=== PATIENT | female | born 1990 | race Caucasian/White ===

== ENCOUNTER 2019-04-08 12:29 | Inpatient (IN) | payer OTHER ==
[~2019-04-08] VITALS: Ht 154.9 cm; Wt 40.0 kg
[2019-04-08] MEDS ORDERED: morphine 4 MG/ML VIAL IV STA ×2 (12:54→19:53)
[2019-04-08] MEDS ORDERED: ONDANSETRON INJ 8 MG in DEXTROSE 5% 50 ML IV STA (12:54)
[2019-04-08] MEDS ORDERED: SOD CHLORIDE 0.9% 1,000 ML IV STA (12:54)
[2019-04-08] MEDS ORDERED: ACETAMINOPHEN 325 MG TAB PO PRN (13:30)
[2019-04-08] MEDS ORDERED: ONDANSETRON 4 MG INJ IV PRN ×2 (13:30→20:00)
[2019-04-08 18:15] VITALS: BP 117/72; PULSE 84; RESP 18
--- NOTE | 2019-04-08 18:16 | ERD ---
ER Documentation Chief Complaint Chief Complaint dizzy, lightheaded, pelvic mass on abd, no appetite for almost a month HPI Patient is a 28-year-old female with no medical problems who presents with abdominal pain. The patient says that she can eat and has been on a liquid diet for the past 2 months. She feels dizzy and lightheaded. She has had diffuse abdominal pain off and on with abdominal distention. She tried medical mar ijuana as well. She did have a bowel movement this morning. She has nausea but no vomiting. She had an MRI done on March 31 which showed a "ovarian cyst". Upon review of old medical records this is the patient's first visit to the emergency department. She does not currently have a primary doctor and she does not have a test development engineer. ROS All systems reviewed and are negative except as per history of present illness. Medications Home Meds No Active Prescriptions or Reported Meds Allergies Allergies: Coded Allergies: sulfamethoxazole (Verified Allergy, Unknown, 04/08/19) trimethoprim (Verified Allergy, Unknown, 04/08/19) PMhx/Soc History of Surgery: No Anesthesia Reaction: No Hx Neurological Disorder: No Hx Respiratory Disorders: No Hx Cardiac Disorders: No Hx Psychiatric Problems: No Hx Miscellaneous Medical Probl: Yes (Ovarian Cyst) Hx Alcohol Use: No Hx Substance Use: Yes (medical Marijuana) Hx Tobacco Use: No Smoking Status: Former smoker FmHx Family History: No diabetes Physical Exam Vitals Vital Signs Date Temp Pulse Resp B/P (MAP) Pulse Ox O2 O2 Flow FiO2 Time Delivery Rate 04/08/19 98.5 143 20 123/79 99 12:33 (94) Physical Exam Const: No acute distress Head: Atraumatic Eyes: Normal Conjunctiva ENT: Normal External Ears, Nose and Mouth. Neck: Full range of motion. No meningismus. Resp: Clear to auscultation bilaterally Cardio: Tachycardic rate without murmur Abd: Distended abdomen with palpable mass and diffuse tenderness to palpation Skin: No petechiae or rashes Back: No midline or flank tenderness Ext: No cyanosis, or edema Neur: Awake and alert Psych: Normal Mood and Affect Result Diagram: 04/08/19 1306 04/08/19 1306 Results 24 hrs Laboratory Tests Test 04/08/19 13:06 White Blood Count 4.0 10^3/ul Red Blood Count 4.63 10^6/ul Hemoglobin 13.6 g/dl Hematocrit 40.9 % Mean Corpuscular Volume 88.3 fl Mean Corpuscular Hemoglobin 29.4 pg Mean Corpuscular Hemoglobin Concent 33.3 g/dl Red Cell Distribution Width 12.1 % Platelet Count 233 10^3/UL Mean Platelet Volume 10.9 fl Immature Granulocytes % 0.500 % Neutrophils % 55.0 % Lymphocytes % 30.4 % Monocytes % 11.1 % Eosinophils % 1.0 % Basophils % 2.0 % Nucleated Red Blood Cells % 0.0 /100WBC Immature Granulocytes # 0.020 10^3/ul Neutrophils # 2.2 10^3/ul Lymphocytes # 1.2 10^3/ul Monocytes # 0.4 10^3/ul Eosinophils # 0.0 10^3/ul Basophils # 0.1 10^3/ul Nucleated Red Blood Cells # 0.0 10^3/ul Prothrombin Time 12.6 Sec Prothrombin Time Ratio 1.0 INR International Normalized Ratio 0.93 Activated Partial Thromboplast Time 26.6 Sec Urine Color YELLOW Urine Clarity CLOUDY Urine pH 7.0 Urine Specific [place] 1.025 Urine Ketones 1+ mg/dL Urine Nitrite NEGATIVE mg/dL Urine Bilirubin NEGATIVE mg/dL Urine Urobilinogen NEGATIVE mg/dL Urine Leukocyte Esterase TRACE Hortencia/ul Urine Microscopic RBC 4 /HPF Urine Microscopic WBC 3 /HPF Urine Squamous Epithelial Cells MODERATE /HPF Urine Mucus FEW /HPF Urine Hemoglobin NEGATIVE mg/dL Urine Glucose NEGATIVE mg/dL Urine Total Protein NEGATIVE mg/dl Sodium Level 144 mmol/L Potassium Level 3.5 mmol/L Chloride Level 105 mmol/L Carbon Dioxide Level 23 mmol/L Anion Gap 16 Blood Urea Nitrogen 15 mg/dl Creatinine 0.53 mg/dl Est Glomerular Filtrat Rate mL/min > 60 mL/min Glucose Level 102 mg/dl Calcium Level 10.0 mg/dl Total Bilirubin 0.5 mg/dl Direct Bilirubin 0.00 mg/dl Indirect Bilirubin 0.5 mg/dl Aspartate Amino Transf (AST/SGOT) 26 IU/L Alanine Aminotransferase (ALT/SGPT) 17 IU/L Alkaline Phosphatase 58 IU/L Troponin I < 0.012 ng/ml Total Protein 8.7 g/dl Albumin 5.1 g/dl Globulin 3.60 g/dl Albumin/Globulin Ratio 1.41 Lipase 127 U/L Current Medications Medications Dose Sig/Betsy Start Time Status Last (Trade) Ordered Route PRN Stop Time Admin Dose Reason Admin Sodium 1,000 ml @ Q1H STAT 04/08/19 DC 04/08/19 Chloride 1,000 mls/hr IV 12:54 04/08/19 13:11 13:53 Morphine 4 mg ONCE STAT 04/08/19 DC 04/08/19 Sulfate IV 12:54 04/08/19 13:11 (morphine) 12:56 Ondansetron 54 ml @ ONCE STAT 04/08/19 DC 04/08/19 HCl 8 200 mls/hr IV 12:54 04/08/19 13:21 mg/Dextrose 13:10 Procedures/MDM Ultrasound pelvis read by radiology. Chest x-ray read by radiology. EKG read by me: Rate/Rhythm: Regular rate and rhythm at a normal rate Intervals: Normal Impression: No evidence of ischemia or arrhythmia Patient is a 28-year-old female presents with abdominal and likely ovarian mass. It is possible that this is a cystadenoma but there is also possibility of ovarian cancer. I spoke with Dr. Bender who is the test development engineer on-call who take the patient to the operating room. The patient will be admitted to a medical surgical bed. I doubt bowel obstruction, appendicitis, or pancreatitis at this time. Departure Diagnosis: Primary Impression: Abdominal pain Abdominal location: generalized Qualified Codes: R10.84 - Generalized abdominal pain Additional Impression: Cystadenoma Condition: BLAS Elena MD April 08, 2019 18:16
[2019-04-08 18:47] VITALS: Ht 154.9 cm; Wt 40.0 kg
[2019-04-08] MEDS ORDERED: DEXTROSE 5%-LR 1,000 ML IV ONE (19:30)
[2019-04-08 20:00] VITALS: BP 104/52; PULSE 63; RESP 18
--- NOTE | 2019-04-08 22:10 | HP ---
Date/Time of Note Date/Time of Note DATE: 04/08/19 TIME: 22:00 Assessment/Plan VTE Prophylaxis SCD applied (from Nsg): No SCD contraindicated: low risk/ambulating Pharmacological prophylaxis: other (None) Pharm contraindication: low risk/ambulating Lines/Catheters IV Catheter Type (from Nrsg): Saline Lock Assessment/Plan Assessment/Plan 28 years old 0 with large adnexal mass. Labs, ultrasound, management discussed in detail with patient and her boyfriend. Both expressed understanding. All of their questions answered. She would like to be discharged home tomorrow and have follow-up at [facility]. Observe her closely. She will be seen by the upcoming laborist tomorrow Result Diagram: 04/08/19 1306 04/08/19 1306 Results 24hrs Laboratory Tests Test 04/08/19 13:06 04/08/19 14:31 White Blood Count 4.0 L Red Blood Count 4.63 Hemoglobin 13.6 Hematocrit 40.9 Mean Corpuscular Volume 88.3 Mean Corpuscular Hemoglobin 29.4 Mean Corpuscular Hemoglobin Concent 33.3 Red Cell Distribution Width 12.1 Platelet Count 233 Mean Platelet Volume 10.9 H Immature Granulocytes % 0.500 H Neutrophils % 55.0 Lymphocytes % 30.4 Monocytes % 11.1 H Eosinophils % 1.0 Basophils % 2.0 Nucleated Red Blood Cells % 0.0 Immature Granulocytes # 0.020 Neutrophils # 2.2 Lymphocytes # 1.2 Monocytes # 0.4 Eosinophils # 0.0 Basophils # 0.1 Nucleated Red Blood Cells # 0.0 Prothrombin Time 12.6 Prothrombin Time Ratio 1.0 INR International Normalized Ratio 0.93 Activated Partial Thromboplast Time 26.6 Urine Color YELLOW Urine Clarity CLOUDY A Urine pH 7.0 Urine Specific [place] 1.025 Urine Ketones 1+ H Urine Nitrite NEGATIVE Urine Bilirubin NEGATIVE Urine Urobilinogen NEGATIVE Urine Leukocyte Esterase TRACE A Urine Microscopic RBC 4 Urine Microscopic WBC 3 Urine Squamous Epithelial Cells MODERATE Urine Mucus FEW A Urine Hemoglobin NEGATIVE Urine Glucose NEGATIVE Urine Total Protein NEGATIVE Sodium Level 144 Potassium Level 3.5 Chloride Level 105 Carbon Dioxide Level 23 Anion Gap 16 H Blood Urea Nitrogen 15 Creatinine 0.53 Est Glomerular Filtrat Rate mL/min > 60 Glucose Level 102 Calcium Level 10.0 Total Bilirubin 0.5 Direct Bilirubin 0.00 Indirect Bilirubin 0.5 Aspartate Amino Transf (AST/SGOT) 26 Alanine Aminotransferase (ALT/SGPT) 17 Alkaline Phosphatase 58 Troponin I < 0.012 Total Protein 8.7 H Albumin 5.1 H Globulin 3.60 H Albumin/Globulin Ratio 1.41 Lipase 127 POC Beta HCG, Qualitative NEGATIVE HPI/ROS Admit Date/Time Admit Date/Time April 08, 2019 at 13:11 Hx of Present Illness 28 years old 0 presented to emergency department with complaining of abdominal pain, dizziness, and nausea. She states is not able to eat regular diet and only taking clear liquid. She states the size of her abdomen incr easing in the last 3 months. She has no rod puller or primary care physician. She was seen at [facility], and abdominal MRI ordered which revealed large ovarian cyst. Ultrasound performed at the emergency department: The uterus is normal in size with a normal appearance of the myometrium. The uterus measures 8.7 x 3.3 x 5.0 cm. The endometrial stripe is homogeneous in appearance and has the thickness of 7 mm. The ovaries are not visualized. There is a large cystic mass superior to the uterus measuring 18 x 10 x 17 cm. No free fluid is present within the pelvis. IMPRESSION: Large cystic mass in the abdomen and pelvis, superior to the uterus. Ovarian n eoplasm cannot be excluded. Surgical consultation is recommended. ROS Additional Comments All above system are negative except as noted in history of present illness PMH/Family/Social Past Medical History Blood pressure 100/62, pulse rate 60/minutes, respiratory rates 14/minutes, temperature 98.4 Medical History: no pertinent history Medications Current Medications Ondansetron HCl (Zofran Inj) 4 mg BRIDGE ORDER PRN IV NAUSEA/VOMITING Last administered on 04/08/19at 20:15; Admin Dose 4 MG; Start 04/08/19 at 13:30; Stop 04/09/19 at 13:29 Acetaminophen (Tylenol Tab) 650 mg ER BRIDGE PRN PO .MILD PAIN 1-3 OR TEMP; Start 04/08/19 at 13:30; Stop 04/09/19 at 13:29 Dextrose/Lactated Ringer's 1,000 ml @ 100 mls/hr Q10H ONCE IV Last administered on 04/08/19at 20:10; Admin Dose 100 MLS/HR; Start 04/08/19 at 19:30; Stop 04/09/19 at 05:29 Ondansetron HCl (Zofran Inj) 4 mg Q6H PRN IV NAUSEA AND/OR VOMITING; Start 04/08/19 at 20:00 Coded Allergies: sulfamethoxazole (Verified Allergy, Unknown, 04/08/19) trimethoprim (Verified Allergy, Unknown, 04/08/19) Past Surgical History Past Surgical Hx: no surgical history Family History Significant Family History: no pertinent family hx Social History Alcohol Use: none Smoking Status: Never smoker Drug Use: marijuana (In the last 2 years) Exam/Review of Systems Vital Signs Vitals Vital Signs Date Temp Pulse Resp B/P (MAP) Pulse Ox O2 O2 Flow FiO2 Time Delivery Rate 04/08/19 98.4 63 18 104/52 99 20:00 (69) 04/08/19 Room Air 18:15 Exam Constitutional: alert, oriented, well developed Psych: nl mood/affect Head: normocephalic Neck: supple, non-tender Respiratory: clear to auscultation, normal air movement Cardiovascular: regular rate and rhythm, nl pulses (Soft, there is a large central mass at the level of the umbilicus. Mild tenderness. No rebound) Extremities: other (No edema, varicose vein, thigh or calf tenderness bilaterally) Neurological: nl SHAHEED Damon April 08, 2019 22:10
[2019-04-09 02:00] VITALS: BP 95/53; PULSE 67; RESP 19
[2019-04-09 08:19] VITALS: BP 103/63; PULSE 61; RESP 15
--- NOTE | 2019-04-09 15:06 | PD.PPDC ---
[employer] SUPERVISOR Discharge Instruction Provider Information Physician Information Rehana Chou MD Condition [id number] Patient Condition: [id number] Good Activity/Restrictions [id number] Activity: Azacf2c Normal Activity [id number] Restrictions: [id number] No Exercising No Lifting No Driving Follow-up Follow-up with Physician: 3, 4, Day/Days Provider Information: Rehana Chou MD Return to clinic for [id number] [employer] CONTACT Instructions: [id number] Fever greater than 101 Chills Worsening abdominal pain Excessive Vaginal Bleeding More than 2 pads per hour Unable to tolerate diet REHANA CHOU MD April 09, 2019 15:06
--- NOTE | 2019-04-09 15:06 | PN ---
Date/Time of Note Date/Time of Note DATE: 04/09/19 TIME: 14:28 Assessment/Plan VTE Prophylaxis Risk score (from Nsg)>0 risk: 0 SCD applied (from Nsg): No SCD contraindicated: low risk/ambulating Pharmacological prophylaxis: NA/contraindicated Pharm contraindication: low risk/ambulating Lines/Catheters IV Catheter Type (from Nrsg): Saline Lock Assessment/Plan Hospital Course 1. HD#2 Pelvic pain. Pelvic mass. No evidence of torsion.Symptomatic. no evidence of ac chilkoot abdomen, Patient is stable for discharge. She understand importance of follow up immediately within 3-4 days after DC home with her CARE TECHNICIAN. Patient understands that possibility of malignancy can not been ruled out and understands that she needs to have a close follow-up immediately after discharge from the hospital. She desires to go to [facility]. Torsion precaution discussed with patient. All questions were answered to patient best satisfaction Result Diagram: 04/08/19 1306 04/08/19 1306 Results 24hrs Laboratory Tests Test 04/08/19 14:31 POC Beta HCG, Qualitative NEGATIVE Subjective 24 Hr Interval Summary Free Text/Dictation 04/09/2019 Denies any complaint. Denies any nausea or vomiting, Reports good apetite. Denies any fever or chills. Desires to go home. Patient desires to present to [facility]. Exam/Review of Systems Exam Vitals Vital Signs Date Temp Pulse Resp B/P (MAP) Pulse Ox O2 O2 Flow FiO2 Time Delivery Rate 04/09/19 98.2 61 15 103/63 100 08:19 (76) 04/08/19 Room Air 18:15 Intake and Output 04/08/19 04/08/19 04/09/19 1515:00 23:00 07:00 IntakeIntake Total 1000 ml BalanceBalance 1000 ml Constitutional: alert, oriented, well developed Psych: no complaints, nl mood/affect, anxiety Head: normocephalic, atraumatic Eyes: nl conjunctiva ENMT: nl external ears & nose, nl lips & teeth, nl nasal mucosa & septum Neck: supple, non-tender Respiratory: clear to auscultation, normal air movement Cardiovascular: regular rate and rhythm, nl pulses Gastrointestinal: soft, nl liver, spleen, tender (slight tenderness in the abdomen, noted. No rebound tenderness, no guarding, no rigidity. There is a midline pelvic mass palpable up to 2 cm above the umbilicus) Genitourinary - Female: other (Pelvic exam Deferrred.) Skin: nl turgor, rash or lesions Lymph: nl lymph nodes Results Results 24hrs Laboratory Tests Test 04/08/19 14:31 POC Beta HCG, Qualitative NEGATIVE Imaging Imaging PROCEDURE: US Pelvis. CLINICAL INDICATION: pelvic pain , ovarian cyst TECHNIQUE: Multiple sonographic images of the pelvis were obtained utilizing transabdominal technique. The images were reviewed on a PACS workstation. COMPARISON: None. FINDINGS: The uterus is normal in size with a normal appearance of the myometrium. The uterus measures 8.7 x 3.3 x 5.0 cm. The endometrial stripe is homogeneous in appearance and has the thickness of 7 mm. The ovaries are not visualized. There is a large cystic mass superior to the uterus measuring 18 x 10 x 17 cm. No free fluid is present within the pelvis. RPTAT: AA IMPRESSION: Large cystic mass in the abdomen and pelvis, superior to the uterus. Ovarian neoplasm cannot be excluded. Surgical consultation is recommended. Medications Medication Current Medications Ondansetron HCl (Zofran Inj) 4 mg Q6H PRN IV NAUSEA AND/OR VOMITING; Start 04/08/19 at 20:00 REHANA CHOU MD April 09, 2019 15:05
--- NOTE | 2019-04-09 15:08 | DS ---
Date/Time of Note Date/Time of Note DATE: 04/09/19 TIME: 15:07 Discharge Summary Admission/Discharge Info Admit Date/Time April 08, 2019 at 13:11 Discharge Date/Time 04/09/2019 Discharge Diagnosis 1. Abdominal pain 2. Large pelvic cystic mass Patient Condition: Good Procedures Observation Pain management Ultrasound of the pelvis Hospital Course 1. HD#2 Admitted due to pelvic pain. Noted to have a large pelvic mass. Ovarian neoplasm cannot be excluded. Patient admitted for pain control. Her abdomen was soft. There was no evidence of acute abdomen. There was no evidence of cyst rupture or torsion during observation. Due to concern for possibility of ovarian neoplasm cannot be ruled out recommended the patient to be seen as outpatient and to schedule the surgery with TATTOO DESIGNER oncology as outpatient. Patient desires to go to [facility] and get care there. On hospital day #1 patient was noted to be stable enough to be discharged home. She denies any pain. She had good appetite. She denies any nausea vomiting. She was advised to have a follow-up as soon as possible after discharge from the hospital within the next 2 to 3 days with her primary TATTOO DESIGNER at [facility]. She understands the possibility of malignancy cannot be ruled out. All questions were answered to patient with satisfaction. Torsion precaution discussed with patient. She agreed to comply with all instructions. Home Meds No Active Prescriptions or Reported Meds Primary Care Provider [facility] REHANA CHOU MD April 09, 2019 15:08
[2019-04-09 15:33] VITALS: BP 121/74; PULSE 70; RESP 16
== END 2019-04-09 16:30 | disposition home or self-care (01) | DRG 392 ==
LOC: E/R 12:29 → 2NE 13:11
PROVIDERS: ADMIT Obstetrics & Gynecology; ATTEND Obstetrics & Gynecology
DX: R10.9 Unspecified abdominal pain (principal); R19.00 Intra-abdominal and pelvic swelling, mass and lump, unspecified site
CPT/HCPCS: 71045; 76856; 80053; 81001; 81025; 83690; 84484; 85025; 85610; 85730; 93005; 96374; J2270; J2405; J7030; J7121

== ENCOUNTER 2019-04-19 16:56 | Emergency (ER) | payer OTHER ==
[~2019-04-19] VITALS: Wt 37.6 kg
[2019-04-19] MEDS ORDERED: morphine 4 MG/ML VIAL IV STA (18:25)
[2019-04-19] MEDS ORDERED: SOD CHLORIDE 0.9% 500 ML IV STA (18:25)
--- NOTE | 2019-04-19 20:03 | ERD ---
ER Documentation Chief Complaint Chief Complaint LOST WT, NOT EATING , AP, WEAKNESS HPI 28-year-old female recently diagnosed with a large ovarian cystic mass presenting with worsening abdominal pain, 25 pound weight loss over the past 3 months, decreased appetite, difficulty having bowel movements. She was admitted here a few weeks ago and was seen by gynecology. They felt that she needed gynecology oncology to do surgery on her which we do not have here. They referred her to [facility]. Patient went to the ER at [facility], where they did not admit her and stated that the surgery should have been done here at this hospital. Patient states that she has been getting the "run around" from her outpatient primary care clinic. She has not been able to see a psychological aide. No fevers or chills. No vomiting. ROS All systems reviewed and are negative except as per history of present illness. Medications Home Meds No Active Prescriptions or Reported Meds Allergies Allergies: Coded Allergies: sulfamethoxazole (Verified Allergy, Unknown, 04/19/19) trimethoprim (Verified Allergy, Unknown, 04/19/19) PMhx/Soc History of Surgery: No Anesthesia Reaction: No Hx Neurological Disorder: No Hx Respiratory Disorders: No Hx Cardiac Disorders: No Hx Psychiatric Problems: No Hx Miscellaneous Medical Probl: No (Ovarian cyst) Hx Alcohol Use: No Hx Substance Use: Yes (Marijuana) Hx Tobacco Use: No (Marijuna use) Smoking Status: Never smoker FmHx Mother from breast cancer Family History: No diabetes Physical Exam Vitals Vital Signs Date Temp Pulse Resp B/P (MAP) Pulse Ox O2 O2 Flow FiO2 Time Delivery Rate 04/19/19 88 16 94/72 (79) 99 Room Air 21:27 04/19/19 76 16 106/54 98 Room Air 19:09 (71) 04/19/19 98.1 140 28 143/85 99 17:03 (104) Physical Exam Const: No acute distress, very thin body habitus Head: Atraumatic Eyes: Normal Conjunctiva ENT: Normal External Ears, Nose and Mouth. Neck: Full range of motion. No meningismus. Resp: Clear to auscultation bilaterally Cardio: Tachycardic with regular rhythm, no murmurs Abd: Soft, distended, mass palpated, significant tenderness to palpation in all 4 quadrants. Hypoactive bowel sounds Skin: No petechiae or rashes Back: No midline or flank tenderness Ext: No cyanosis, or edema Neur: Awake and alert Psych: Normal Mood and Affect Result Diagram: 04/19/19183404/19/191834 Results 24 hrs Laboratory Tests Test 04/19/19 18:35 04/19/19 18:44 04/19/19 18:46 White Blood Count 4.8 10^3/ul Red Blood Count 3.99 10^6/ul Hemoglobin 11.9 g/dl Hematocrit 35.2 % Mean Corpuscular Volume 88.2 fl Mean Corpuscular Hemoglobin 29.8 pg Mean Corpuscular 33.8 g/dl Hemoglobin Concent Red Cell Distribution Width 11.5 % Platelet Count 208 10^3/UL Mean Platelet Volume 11.1 fl Immature Granulocytes % 0.200 % Neutrophils % 46.8 % Lymphocytes % 37.4 % Monocytes % 10.3 % Eosinophils % 3.9 % Basophils % 1.4 % Nucleated Red Blood Cells % 0.0 /100WBC Immature Granulocytes # 0.010 10^3/ul Neutrophils # 2.3 10^3/ul Lymphocytes # 1.8 10^3/ul Monocytes # 0.5 10^3/ul Eosinophils # 0.2 10^3/ul Basophils # 0.1 10^3/ul Nucleated Red Blood Cells # 0.0 10^3/ul Urine Color YELLOW Urine Clarity SLIGHTLY CLOUDY Urine pH 5.0 Urine Specific Wood 1.026 Urine Ketones 1+ mg/dL Urine Nitrite NEGATIVE mg/dL Urine Bilirubin NEGATIVE mg/dL Urine Urobilinogen NEGATIVE mg/dL Urine Leukocyte Esterase NEGATIVE Hortencia/ul Urine Microscopic RBC 6 /HPF Urine Microscopic WBC 4 /HPF Urine Squamous Epithelial Cells FEW /HPF Urine Mucus MANY /HPF Urine Hemoglobin 1+ mg/dL Urine Glucose NEGATIVE mg/dL Urine Total Protein 1+ mg/dl Sodium Level 141 mmol/L Potassium Level 3.4 mmol/L Chloride Level 106 mmol/L Carbon Dioxide Level 22 mmol/L Anion Gap 13 Blood Urea Nitrogen 8 mg/dl Creatinine 0.60 mg/dl Est Glomerular Filtrat > 60 mL/min Rate mL/min Glucose Level 95 mg/dl Calcium Level 9.4 mg/dl Total Bilirubin 0.5 mg/dl Direct Bilirubin 0.00 mg/dl Indirect Bilirubin 0.5 mg/dl Aspartate Amino Transf (AST/SGOT) 21 IU/L Alanine 21 IU/L Aminotransferase (ALT/SGPT) Alkaline Phosphatase 56 IU/L Total Protein 7.8 g/dl Albumin 4.4 g/dl Globulin 3.40 g/dl Albumin/Globulin Ratio 1.29 Lipase 95 U/L Bedside Urine pH (LAB) 6.0 Bedside Urine Protein (LAB) Trace Bedside Urine Glucose (UA) Negative Bedside Urine Ketones (LAB) 2+ Bedside Urine Blood Trace-lysed Bedside Urine Nitrite (LAB) Negative Bedside Urine Leukocyte Esterase Negative (L POC Beta HCG, Qualitative NEGATIVE Current Medications Medications Dose Sig/Betsy Start Time Status Last (Trade) Ordered Route PRN Stop Time Admin Dose Reason Admin Sodium 500 ml @ Q1H STAT 04/19/19 DC 04/19/19 Chloride 500 mls/hr IV 18:25 19:05 04/19/19 19:24 Morphine 4 mg ONCE STAT 04/19/19 DC 04/19/19 Sulfate IV 18:25 19:05 (morphine) 04/19/19 18:26 Procedures/MDM EMERGENT LABS AND DIAGNOSTIC STUDIES: Lab Results above were reviewed and interpreted by me. CBC: no anemia or evidence of infection CMP: No evidence of clinically significant electrolyte abnormality, acidosis, renal failure, hypoglycemia, liver disease, or biliary obstruction negative UA: Positive ketones. No evidence of infection Radiology Results as interpreted by Radiology below were reviewed by Rafi Ram MD: US Pelvis: Large pelvic cystic mass, unchanged from previous studies Initial Nursing notes reviewed. Previous Medical Records requested via the Electronic Health Record. EMERGENCY DEPARTMENT COURSE / MEDICAL DECISION MAKING: Patient is presenting with intractable abdominal pain secondary to a diagnosed ovarian mass. All of her symptoms are likely secondary to this mass. She has been unable to see a gynecologic physician to get definitive treatment. Althoug h the patient has the symptoms, labs do not show any significant abnormalities. She is well-hydrated and has no signs of organ failure. I did speak with the case repairer for her insurance and they instructed me to try to transfer the patient to another hospital with gynecology oncology services. I spoke with [facility], but they are unable to transfer patient if there are no beds available at any of their hospitals. I contacted [facility] and spoke with the sales appointment coordinator, they stated that they were unable to transfer the patient without accepting doctor but did not have anyone for us to speak with to discuss patient's case any further. I spoke with gynecology at [facility]. 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 They do not feel that the patient meets criteria for transfer, emergent admission and surgery. They got in contact with [facility], and it seems that the last time she visited this hospital which was April 10, the physicians at the hospital spoke with the patient's primary care doctor. They were told that the patient have an appointment to see a specialist at [facility] on May 05. I feel waiting for this follow-up is appropriate. I explained to the patient that she is stable and does not meet criteria for admission or transfer. I did recommend she keep her appointment at [facility]. Return precautions were discussed. I also provided her with information for a gynecologic physician at [facility] if she would like to make an appointment with them. Patient's blood pressure was elevated (>120/80) but appears stable without evidence of hypertensive emergency or urgency. The patient was counseled about the risks of hypertension and urged to pursue outpatient monitoring and therapy within a week with their primary care physician. Departure Diagnosis: Primary Impression: Ovarian cyst Laterality: unspecified laterality Qualified Codes: N83.209 - Unspecified ovarian cyst, unspecified side Additional Impression: Chronic generalized abdominal pain Condition: Stable Referrals: [facility] [place] [address] [facility] [address] [place], [place] [phone] [address]ABUSLEME [facility] [address] [place], [place] [id number] [address] [place] [address] [place], [place] [phone] DR GOMEZ [facility] [address] [facility], [address], [place] [address] [address] [facility], [facility] [address] [facility], [place], [place] [phone] [facility] [address] [place] [address] [phone] [address] [facility], [facility] [id number] - [address] DIAZ, ANNMARIE [address], [place] [phone] DR BEDOLLA, GALE [address] [facility]. [address] [address] DR BAEZ, FARID [address] [place], [place] [phone] BARB RAM MD April 19, 2019 20:01
[2019-04-19 21:27] VITALS: BP 94/72; PULSE 88; RESP 16
== END 2019-04-19 23:18 | disposition home or self-care (01) ==
LOC: E/R 16:56
DX: N83.209 Unspecified ovarian cyst, unspecified side (principal)
CPT/HCPCS: 36415; 76856; 80053; 81001; 81025; 83690; 85025; 96374; J2270; J7040; Z7502; 81003